=== PATIENT | male | born 1985 | race Caucasian/White ===

== ENCOUNTER 2020-02-13 19:21 | Emergency (ER) | payer OTHER ==
[2020-02-13] MEDS ORDERED: PREDNISONE 20 MG TABLET PO ONE (20:45)
[2020-02-13] MEDS ORDERED: BENZONATATE 100 MG CAPSULE PO ONE (20:46)
[2020-02-13] MEDS ORDERED: ALBUTEROL SULFATE HFA (90 MCG/PUFF) 8 GM MDI (1 MDI/ER DISP) IH ONE (20:48)
--- NOTE | 2020-02-13 21:03 | ER Document Report ---
ED General - General Stated Complaint: SHORTNESS OF BREATH Notes: 34-year-old male history of frequent previous episodes of "bronchitis"with no prior asthma diagnosis presents with approximately 1 week of malaise, dry cough intermittently productive of small amounts of yellow nonbloody sputum, generalized discomfort exacerbated by frequent coughing, shortness of breath associated with coughing. Patient has had no sick contacts. Has been taking ibuprofen and Mucinex for symptoms with transient relief. Patient denies any dizziness, fatigue, rashes, vomiting, diarrhea, abdominal pain, cardiac history, smoking/COPD history, lower extremity edema, DVT/PE/hypercoagulability history in self or family, recent travel/trauma/surgery/immobilization, cancer history, hemoptysis - Related Data Allergies/Adverse Reactions: No Known Allergies Allergy (Unverified 02/13/20 20:56) Past Medical History - General Information source: Patient - Social History Smoking Status: Unknown if Ever Smoked Family History: Reviewed & Not Pertinent Review of Systems - Review of Systems Notes: REVIEW OF SYSTEMS: CONSTITUTIONAL : Denies fever, chills, or sweats. EENT: Denies sinus symptoms, denies throat pain CARDIOVASCULAR: Denies chest pain, LETTY RESPIRATORY: + cough, + shortness of breath. GASTROINTESTINAL: Denies abdominal pain, nausea/vomiting. GENITOURINARY: Denies difficulty urinating, painful urination. MUSCULOSKELETAL: Denies neck pain, back pain. SKIN: Denies rash or skin lesions. HEMATOLOGIC : Denies easy bruising or bleeding. LYMPHATIC: Denies swollen, enlarged glands. NEUROLOGICAL: Denies headache, denies change in gait. PSYCHIATRIC: Denies anxiety or stress or depression. Physical Exam - Vital signs Vitals: Temp Pulse Resp BP Pulse Ox 98.4 F 63 16 142/88 H 97 02/13/20 19:38 02/13/20 19:38 02/13/20 19:38 02/13/20 19:38 02/13/20 19:38 - Notes Notes: PHYSICAL EXAMINATION: GENERAL: Conversive very well-appearing young adult male, well-nourished, sitting up in stretcher HEAD: Atraumatic, normocephalic. EYES: Pupils equal round and appropriate constriction, sclera anicteric, conjunctiva are normal. ENT: nares patent, moist mucous membranes. NECK: Normal range of motion, supple without lymphadenopathy LUNGS: Breath sounds clear to auscultation bilaterally and equal. No wheezes rales or rhonchi. Normal respiratory rate, no accessory muscle use, speaking in full sentences, normal work of breathing HEART: Regular rate and rhythm without murmurs ABDOMEN: Soft, nontender, no guarding, no masses EXTREMITIES: Normal range of motion, no pitting or edema. No cyanosis. NEUROLOGICAL: Awake, alert, conversing appropriately, moves all extremities spontaneously. PSYCH: Normal mood, normal affect. SKIN: Warm, Dry, normal turgor, no rashes or lesions noted. Course - Re-evaluation Re-evalutation: 02/13/20 21:01 Very well-appearing young adult male with 1 week of likely viral symptoms without any signs of respiratory distress, normal vital signs, noknown underlying conditions putting patient at risk factors for complicated course however given the history of multiple episodes of bronchitis in the past that had previously improved with steroids will give albuterol and steroid trial for symptomatic improvement. Will obtain chest x-ray to rule out signs of a bacterial pneumonia. No indication for lab work at this time as patient has no risk factors or signs of insensible losses though" or electrolyte abnormalities. Patient is PERC negative. No cardiac symptoms. Will give symptomatic treatment obtain chest x-ray send COVID swab and likely discharge on albuterol steroids with PCP follow-up and return precautions. The patient was evaluated during the global COVID-19 pandemic and that diagnosis was suspected/considered upon their initial presentation. Their evaluation, treatment and testing was consistent with current guidelines for patients who present with complaints or symptoms that may be related to COVID-19. 02/13/20 21:57 No findings suspicious for bacterial pneumonia on chest x-ray, patient ready for discharge, given extensive return to ED precautions which she demonstrated understanding of, given supportive care, patient denies any other questions or concerns and will follow up with his primary doctor. - Vital Signs Vital signs: Temp Pulse Resp BP Pulse Ox 98.1 F 65 16 138/86 H 98 02/13/20 22:26 02/13/20 22:26 02/13/20 22:26 02/13/20 22:26 02/13/20 22:26 Discharge - Discharge Clinical Impression: Viral upper respiratory illness Disposition: HOME, SELF-CARE Additional Instructions: Patient was provided with discharge information including: As a person under investigation for Covid 19, the [place] department of Health and Human Services, division of public health advises you to adhere to the following guidance until your test results are reported to you. If your test result is positive, you will receive additional information from your provider and your local health department at that time. Remain at home until you are cleared by the health provider or public health authorities. Keep a log of visitors to your home, notify any visitors to your home of your isolation status. If you plan to move to a new address or leave the critical access hospital, notify the local health department in your County. Call your doctor or seek care if you have an urgent medical need. Before seeking medical care, call ahead to get instructions from the provider before arriving at the medical office clinic or hospital. Notify them that you are being tested for the virus that causes Covid 19 so that arrangements can be made, as necessary, to prevent transmission to others in the healthcare setting. Next, notify the local health department in your critical access hospital. If a medical emergency arises and you need to call 911, inform the first responders that you are being tested for the virus that causes Covid 19. Next, notify the local health department in your critical access hospital. Use albuterol every 4 hours as needed over the next 5 days, follow-up with your primary doctor within 5 days, if at any time you feel like you have worsening trouble breathing, dizziness, fainting, inability to keep down liquids by mouth, black or bloody stool, frequent diarrhea, rash, confusion, or any other worsening or alarming symptoms return to the emergency department immediately. Prescriptions: Acetaminophen with Codeine [Tylenol #3 Tablet] 1 each PO Q6HP PRN 2 Days #8 tab let PRN Reason: Cough Benzonatate [Tessalon Perles 100 mg Capsule] 100 mg PO Q8HP PRN #40 capsule PRN Reason: Cough
--- NOTE | 2020-02-13 21:47 | RADIOLOGY REPORT (SQ) ---
EXAM DESCRIPTION: X-RAY CHEST- One View CLINICAL HISTORY: Cough and shortness of breath COMPARISON: None available TECHNIQUE: Single view of the chest. FINDINGS: There are no discrete air space infiltrates, pneumothoraces or pleural effusions. The pulmonary vascularity is normal. The cardiomediastinal silhouette is normal in size. No suspicious lytic or blastic osseous lesions are identified. IMPRESSION: No pulmonary opacities identified. Please note that chest radiographs have low sensitivity for subtle groundglass opacities.
[2020-02-13 22:28] VITALS: BP 138/86
== END 2020-02-13 22:26 | disposition home or self-care (01) ==
LOC: ER 19:21
DX: J06.9 Acute upper respiratory infection, unspecified (principal); B97.89 Other viral agents as the cause of diseases classified elsewhere; Z20.828 Contact with and (suspected) exposure to other viral communicable diseases; R53.81 Other malaise; R05 Cough; R06.02 Shortness of breath
CPT/HCPCS: 99284; 87635; 71045; J7512; J3490; C9803